=== PATIENT | male | born 1945 | race Caucasian/White ===

== ENCOUNTER 2016-09-08 18:53 | Emergency (ER) | payer MEDICARE, OTHER ==
[~2016-09-08] VITALS: Ht 175.2 cm; Wt 63.5 kg
[~2016-09-08 18:53] MED LIST: ATIVAN0.5 MG PEG; BACTRIM DS 8001 TA1 PO; CARBIDOPA PEG; CEPHALEXIN500 M1 PO; FLAGYL500 MG PO; FLONASE ALLERG9.9 ML NAS; GOOD NEIGHBOR650 MG PEG; HEPARIN SC; MIRAPEX0.5 MG PO; MIRAPEX1.5 MG PO; RESTORIL7.5 M1 PEG; ROPINIROLE HYD0.5 MG PEG; SINEMET 25-1001 TA1 GT; SINEMET 25-1001 TA1 PO; TYLENOL325 M1 PO; [UNRECOGNIZED DRUG - OTHER] PEG
== END 2016-09-08 20:41 | disposition home or self-care (01) ==
LOC: ED 18:53
DX: S09.90XA Unspecified injury of head, initial encounter (principal); G20 Parkinson's disease; W19.XXXA Unspecified fall, initial encounter; W01.198A Fall on same level from slipping, tripping and stumbling with subsequent striking against other object, initial encounter; Y93.89 Activity, other specified; Y92.090 Kitchen in other non-institutional residence as the place of occurrence of the external cause; Y99.9 Unspecified external cause status

== ENCOUNTER 2016-11-04 18:53 | Emergency (ER) | payer MEDICARE, OTHER ==
[~2016-11-04] VITALS: Ht 175.2 cm; Wt 65.8 kg
== END 2016-11-04 21:32 | disposition home or self-care (01) ==
LOC: ED 18:53
DX: S00.83XA Contusion of other part of head, initial encounter (principal); S00.90XA Unspecified superficial injury of unspecified part of head, initial encounter; R03.0 Elevated blood-pressure reading, without diagnosis of hypertension; I10 Essential (primary) hypertension; W22.03XA Walked into furniture, initial encounter; Y93.89 Activity, other specified; Y92.9 Unspecified place or not applicable; Y99.9 Unspecified external cause status

== ENCOUNTER 2016-11-26 11:29 | Emergency (ER) | payer MEDICARE, OTHER ==
[~2016-11-26] VITALS: Ht 175.2 cm; Wt 65.8 kg
[2016-11-26] MEDS ORDERED: AMANTADINE HCL100 M1 PO (11:46)
== END 2016-11-26 13:22 | disposition home or self-care (01) ==
LOC: ED 11:29
DX: S02.2XXA Fracture of nasal bones, initial encounter for closed fracture (principal); S00.90XA Unspecified superficial injury of unspecified part of head, initial encounter; I10 Essential (primary) hypertension; G20 Parkinson's disease; Z79.899 Other long term (current) drug therapy; W18.39XA Other fall on same level, initial encounter; Y93.9 Activity, unspecified; Y92.9 Unspecified place or not applicable; Y99.9 Unspecified external cause status

== ENCOUNTER → 2017-05-23 | Outpatient (CLI) | payer MEDICARE, OTHER ==
[~2017-05-23] MED LIST changes: +AMANTADINE HCL100 M1 PO
[2017-05-23 12:36] LABS: ALBUMIN 3.4 gm/dl (3.1-4.5); ALKALINE PHOSPHATASE 152 U/L (45-117); BILIRUBIN, DIRECT < 0.1 mg/dL (0.0-0.2); SGOT/AST 13 IU/L (3-35); SGPT/ALT 10 U/L (12-78); TOTAL PROTEIN 6.9 gm/dL (6.4-8.2)
[2017-05-23 12:44] LABS: THYROID STIM HORMONE (HS) 0.156 uIU/ml (0.358-4.75)
== END | disposition home or self-care (01) ==
LOC: LAB 11:44
PROVIDERS: Nurse Practitioner
DX: G25.3 Myoclonus (principal); R26.9 Unspecified abnormalities of gait and mobility

== ENCOUNTER 2017-10-03 08:35 | Emergency (ER) | payer MEDICARE, OTHER ==
[~2017-10-03] VITALS: Ht 170.2 cm; Wt 68.0 kg
== END 2017-10-03 10:26 | disposition expired ==
LOC: ED 08:35
DX: I46.9 Cardiac arrest, cause unspecified (principal); I21.3 ST elevation (STEMI) myocardial infarction of unspecified site; G20 Parkinson's disease; Z79.899 Other long term (current) drug therapy